=== PATIENT | male | born 1950 | race Caucasian/White ===

== ENCOUNTER → 2016-04-13 | Outpatient (CLI) | payer OTHER ==
--- NOTE | 2016-04-13 14:54 | REP ---
WHOLE BODY BONE SCAN: HISTORY: Whole body bone pain. History of recently diagnosed prostate cancer. No treatment to date. Comparison pelvic CT, March 05, [address] from the same date show lymphadenopathy and sclerotic skeletal metastatic disease. TECHNIQUE: 22.0 mCi of technetium 99m MDP is injected, and standard whole body bone scan imaging is acquired. SCINTIGRAPHIC FINDINGS: There is widespread multifocal increased uptake essentially throughout the axial skeleton consistent with advanced skeletal metastatic disease. There is uptake within the kidneys and the urinary bladder. Mild arthritic uptake is visible in the knees. Pelvis, lumbar, thoracic, cervical spine, calvarium, and bilateral ribs, as well as shoulder girdle bony components. Manubrial and sternal metastases are also seen. 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 Signed by Jamshid Mathews MD 04/13/2016 03:23 P
== END | disposition home or self-care (01) ==
LOC: M RAD 10:10
DX: C61 Malignant neoplasm of prostate (principal); C79.51 Secondary malignant neoplasm of bone

== ENCOUNTER 2016-06-29 21:20 | Emergency (ER) | payer OTHER ==
[~2016-06-29] VITALS: Ht 172.7 cm; Wt 72.6 kg
[2016-06-29] MEDS ORDERED: ATIV1TAB7 (21:56)
[2016-06-29] MEDS ORDERED: METR500T10 (21:56)
[2016-06-29] MEDS ORDERED: MAG400TA (21:56)
[2016-06-29] MEDS ORDERED: FLOM5CAP (21:56)
[2016-06-29] MEDS ORDERED: PANT40TA2 (21:56)
[2016-06-29] MEDS ORDERED: CEFE2INJ IV (21:56)
[2016-06-29] MEDS ORDERED: Morphine PO (21:56)
[2016-06-29] MEDS ORDERED: ALTEPLASE 2 MG/2 ML VIAL (J2997 PER 1MG) IV PRN (23:45)
[2016-06-30] MEDS ORDERED: METAL LOCK LOOP XX ONE (01:15)
[2016-06-30] MEDS ORDERED: CEFEPIME HCL 2 GM in D5W MINI-BAG PLUS 50 ML IV ONE (03:30)
[2016-06-30 04:48] VITALS: BP 140/78
== END 2016-06-30 04:50 | disposition home or self-care (01) ==
LOC: M ED 23:26
DX: T82.598A Other mechanical complication of other cardiac and vascular devices and implants, initial encounter (principal); C61 Malignant neoplasm of prostate; Z88.0 Allergy status to penicillin; Z79.899 Other long term (current) drug therapy; Z79.2 Long term (current) use of antibiotics
CPT/HCPCS: 96374; 96375; 99283; J0692; J2997

== ENCOUNTER 2017-07-22 10:24 | Outpatient (RCR) | payer OTHER ==
[2017-07-22 16:21] LABS: HEMATOCRIT 34.2 % (42.0-52.0); HEMOGLOBIN 11.5 g/dl (13.5-17.5); MEAN CORPUSCULAR HEMOGLOBIN 28.5 pg (27.0-33.0); MEAN CORPUSCULAR HGB CONC 33.6 g/dl (32.0-36.5); MEAN CORPUSCULAR VOLUME 84.7 fl (80.0-96.0); PLATELET COUNT, AUTOMATED 243 10^3/uL (150-450); RED BLOOD COUNT 4.04 10^6/uL (4.30-6.10); RED CELL DISTRIBUTION WIDTH 12.6 % (11.5-14.5); WHITE BLOOD COUNT 7.1 10^3/uL (4.0-10.0)
== END 2017-08-05 ==
LOC: M ONCR 10:24
DX: C79.51 Secondary malignant neoplasm of bone (principal); C61 Malignant neoplasm of prostate
CPT/HCPCS: 77307

== ENCOUNTER → 2017-07-22 | Outpatient (CLI) | payer OTHER | LOC: M ONCR 08:57 | DX: C61 Malignant neoplasm of prostate (principal) | CPT/HCPCS: 99201 ==

== ENCOUNTER 2017-08-06 09:44 | Outpatient (RCR) | payer OTHER | END 2017-09-04 | LOC: M ONCR 09:44 | DX: C79.51 Secondary malignant neoplasm of bone (principal); C61 Malignant neoplasm of prostate | CPT/HCPCS: 77412 ==

== ENCOUNTER → 2017-08-13 | Outpatient (CLI) | payer OTHER | LOC: M PAIN 14:15 | DX: C79.51 Secondary malignant neoplasm of bone (principal); C61 Malignant neoplasm of prostate; I10 Essential (primary) hypertension; K21.9 Gastro-esophageal reflux disease without esophagitis; Z79.899 Other long term (current) drug therapy; Z88.0 Allergy status to penicillin | CPT/HCPCS: G0463 ==

== ENCOUNTER → 2017-09-14 | Outpatient (CLI) | payer OTHER | LOC: M ONCR 13:28 | DX: C61 Malignant neoplasm of prostate (principal); C79.51 Secondary malignant neoplasm of bone | CPT/HCPCS: 99211 ==

== ENCOUNTER → 2017-11-22 | Outpatient (CLI) | payer MEDICARE | LOC: M ONCR 15:07 | DX: C61 Malignant neoplasm of prostate (principal); C79.51 Secondary malignant neoplasm of bone | CPT/HCPCS: G0463 ==

== ENCOUNTER 2017-11-25 09:20 | Outpatient (RCR) | payer MEDICARE | END 2017-12-05 | LOC: M ONCR 09:20 | DX: C79.51 Secondary malignant neoplasm of bone (principal); C61 Malignant neoplasm of prostate | CPT/HCPCS: 77307 ==

== ENCOUNTER 2017-12-02 09:05 | Inpatient (IN) | payer MEDICARE ==
[2017-12-02] MEDS: BISACODYL 10 MG SUPP PR ×2 (09:00→19:29)
[2017-12-02] MEDS: NS 1,000 ML IV (09:48)
[2017-12-02] MEDS: ONDANSETRON 4MG/2ML VIAL (J2405) IV (10:28)
[2017-12-02 10:30] LABS: BASO % 0.5 % (0.0-1.0); HEMATOCRIT 38.9 % (42.0-52.0); IMMATURE GRANULOCYTE % 0.5 % (0-3.0); LYMPH # 0.8 10^3/uL (1.5-4.5); LYMPH % 9.5 % (24.0-44.0); MEAN CORPUSCULAR HEMOGLOBIN 28.5 pg (27.0-33.0); MEAN CORPUSCULAR HGB CONC 33.4 g/dl (32.0-36.5); MEAN CORPUSCULAR VOLUME 85.3 fl (80.0-96.0); MONO # 0.4 10^3/uL (0.0-0.8); MONO % 5.1 % (0.0-5.0); NEUTROPHILS # 6.7 10^3/uL (1.8-7.7); NEUTROPHILS % 84.4 % (36.0-66.0); PLATELET COUNT, AUTOMATED 267 10^3/uL (150-450); RED BLOOD COUNT 4.56 10^6/uL (4.30-6.10); RED CELL DISTRIBUTION WIDTH 14.2 % (11.5-14.5)
[2017-12-02 11:02] LABS: ALBUMIN 3.1 GM/DL (3.2-5.2); ALBUMIN/GLOBULIN RATIO 0.79 (1.00-1.93); ALKALINE PHOSPHATASE 383 U/L (45-117); ALT/SGPT 17 U/L (12-78); ANION GAP 9 MEQ/L (8-16); AST/SGOT 16 U/L (7-37); BILIRUBIN,DIRECT 0.3 MG/DL (0.0-0.2); BILIRUBIN,TOTAL 0.7 MG/DL (0.2-1.0); BLOOD UREA NITROGEN 36 MG/DL (7-18); CALCIUM LEVEL 9.7 MG/DL (8.8-10.2); CARBON DIOXIDE LEVEL 34 MEQ/L (21-32); CHLORIDE LEVEL 94 MEQ/L (98-107); CREATININE FOR GFR 2.21 MG/DL (0.70-1.30); GLUCOSE, FASTING 124 MG/DL (70-100); LIPASE 29 U/L (73-393); POTASSIUM SERUM 3.5 MEQ/L (3.5-5.1); SODIUM LEVEL 137 MEQ/L (136-145)
[2017-12-02] MEDS: PERCOCET 5MG/325MG TAB PO (13:16)
[2017-12-02] MEDS ORDERED: FLEET OIL RETENTION ENEMA PR (14:45)
[2017-12-02] MEDS ORDERED: LORazepam 1 MG TAB PO (14:45)
[2017-12-02] MEDS: METHYLNALTREXONE BROMIDE 12 MG/0.6 ML VIAL (RELISTOR) SC (15:00)
[2017-12-02] MEDS: MIRALAX *UNIT DOSE* 17GM PACKET PO (16:31)
[2017-12-02] MEDS: POTASSIUM CHLORIDE 10 MEQ SR TABLET PO (16:31)
[2017-12-02] MEDS: TAMSULOSIN 0.4 MG CAP PO (16:31)
[2017-12-02] MEDS: LR 1,000 ML IV ×2 (16:32→21:25)
[2017-12-02] MEDS: BISACODYL ENEMA 10 MG/30 ML PR (16:32)
[2017-12-02] MEDS: SENOKOT S TAB PO (19:29)
[2017-12-02] MEDS: predniSONE 5 MG TAB PO (19:47)
[2017-12-02] MEDS: MORPHINE 15 MG SA TAB PO (19:48)
[2017-12-02] MEDS: HEPARIN SOD (PORCINE) 5000 UNITS/ML VIAL SC (19:48)
[2017-12-02] MEDS: CYCLOBENZAPRINE 10 MG TAB PO (19:48)
[2017-12-02] MEDS: oxyCODONE 5MG TAB PO (22:35)
[2017-12-03] MEDS: oxyCODONE 5MG TAB PO ×5 (03:09→23:31)
[2017-12-03 03:35] LABS: OSMOLALITY URINE 453 MOSM/KG (500-800)
[2017-12-03 03:38] LABS: APPEARANCE, URINE HAZY (CLEAR); BACTERIA, URINE AUTO NEGATIVE (NEGATIVE); BILIRUBIN, URINE AUTO NEGATIVE (NEGATIVE); BLOOD, URINE BLOOD NEGATIVE (NEGATIVE); COLOR, URINE YELLOW (YELLOW); GLUCOSE, URINE (UA) AUTO NEGATIVE (NEGATIVE); KETONE, URINE AUTO TRACE mg/dL (NEGATIVE); LEUKOCYTE ESTERASE, URINE AUTO NEGATIVE (NEGATIVE); MUCUS, URINE SMALL (NEGATIVE); NITRITE, URINE AUTO NEGATIVE (NEGATIVE); PROTEIN, URINE AUTO NEGATIVE (NEGATIVE); RBC, URINE AUTO 2 /HPF (0-3); SPECIFIC GRAVITY URINE AUTO 1.015 (1.002-1.035); SQUAMOUS EPITHELIAL CELL UR AU 0 /HPF (0-6); WBC, URINE AUTO 2 /HPF (0-3)
[2017-12-03 03:50] LABS: CHLORIDE,RANDOM URINE < 10 MEQ/L; POTASSIUM RANDOM URINE 25.9 MEQ/L; SODIUM,RANDOM URINE 17 MEQ/L; TOTAL PROTEIN,RANDOM URINE 29.2 MG/DL (0.0-12.0)
[2017-12-03] MEDS: LR 1,000 ML IV ×3 (04:05→19:43)
[2017-12-03 06:38] LABS: HEMATOCRIT 33.3 % (42.0-52.0); MEAN CORPUSCULAR HEMOGLOBIN 28.4 pg (27.0-33.0); MEAN CORPUSCULAR HGB CONC 32.4 g/dl (32.0-36.5); MEAN CORPUSCULAR VOLUME 87.6 fl (80.0-96.0); PLATELET COUNT, AUTOMATED 217 10^3/uL (150-450); RED CELL DISTRIBUTION WIDTH 14.2 % (11.5-14.5); WHITE BLOOD COUNT 5.8 10^3/uL (4.0-10.0)
[2017-12-03 06:47] LABS: HEMOGLOBIN 10.8 g/dl (13.5-17.5)
[2017-12-03 07:08] LABS: ALBUMIN 2.6 GM/DL (3.2-5.2); ALBUMIN/GLOBULIN RATIO 0.96 (1.00-1.93); ALKALINE PHOSPHATASE 328 U/L (45-117); ALT/SGPT 14 U/L (12-78); ANION GAP 6 MEQ/L (8-16); AST/SGOT 14 U/L (7-37); BILIRUBIN,TOTAL 0.7 MG/DL (0.2-1.0); BLOOD UREA NITROGEN 29 MG/DL (7-18); CALCIUM LEVEL 8.8 MG/DL (8.8-10.2); CARBON DIOXIDE LEVEL 32 MEQ/L (21-32); CHLORIDE LEVEL 100 MEQ/L (98-107); CREATININE FOR GFR 1.82 MG/DL (0.70-1.30); GLUCOSE, FASTING 111 MG/DL (70-100); MAGNESIUM LEVEL 1.9 MG/DL (1.8-2.4); POTASSIUM SERUM 3.9 MEQ/L (3.5-5.1); SODIUM LEVEL 138 MEQ/L (136-145); TOTAL PROTEIN 5.3 GM/DL (6.4-8.2)
[2017-12-03] MEDS ORDERED: SODIUM CHLORIDE 0.9% INJ 10 ML SYR IV (08:00)
[2017-12-03] MEDS: MORPHINE 15 MG SA TAB PO ×2 (08:53→19:44)
[2017-12-03] MEDS: predniSONE 5 MG TAB PO ×2 (08:54→19:44)
[2017-12-03] MEDS: PANTOPRAZOLE 40MG TAB (PROTONIX) PO (08:54)
[2017-12-03] MEDS: SENOKOT S TAB PO ×2 (08:54→19:43)
[2017-12-03] MEDS: CYCLOBENZAPRINE 10 MG TAB PO ×2 (08:56→19:43)
[2017-12-03] MEDS: TAMSULOSIN 0.4 MG CAP PO (08:56)
[2017-12-03] MEDS: MIRALAX *UNIT DOSE* 17GM PACKET PO (08:59)
[2017-12-03] MEDS: HEPARIN SOD (PORCINE) 5000 UNITS/ML VIAL SC ×2 (08:59→19:44)
[2017-12-03] MEDS: SODIUM CHLORIDE 0.9% INJ 10 ML SYR IV (09:00)
[2017-12-03] MEDS ORDERED: ZYTIGA 250 MG PO (09:00)
[2017-12-03] MEDS: BISACODYL 10 MG SUPP PR ×2 (09:00→19:44)
[2017-12-03] MEDS: INFLUENZA VIRUS VACCINE HIGH DOSE 0.5 ML SYRINGE (90662) IM (10:42)
[2017-12-03] MEDS: ONDANSETRON 4MG/2ML VIAL (J2405) IV (19:43)
[2017-12-04] MEDS: LR 1,000 ML IV ×4 (00:05→20:44)
[2017-12-04] MEDS: ACETAMINOPHEN TAB 650MG DOSE (2X325MG) PO ×2 (01:44→22:02)
[2017-12-04] MEDS: ZYTIGA 250 MG PO (05:50)
[2017-12-04] MEDS: ONDANSETRON 4MG/2ML VIAL (J2405) IV ×2 (05:50→22:19)
[2017-12-04] MEDS: oxyCODONE 5MG TAB PO ×4 (05:51→20:43)
[2017-12-04 06:17] LABS: HEMATOCRIT 29.8 % (42.0-52.0); HEMOGLOBIN 9.7 g/dl (13.5-17.5); MEAN CORPUSCULAR HEMOGLOBIN 28.8 pg (27.0-33.0); MEAN CORPUSCULAR HGB CONC 32.6 g/dl (32.0-36.5); MEAN CORPUSCULAR VOLUME 88.4 fl (80.0-96.0); PLATELET COUNT, AUTOMATED 178 10^3/uL (150-450); RED BLOOD COUNT 3.37 10^6/uL (4.30-6.10); RED CELL DISTRIBUTION WIDTH 14.1 % (11.5-14.5); WHITE BLOOD COUNT 5.8 10^3/uL (4.0-10.0)
[2017-12-04 06:47] LABS: ALBUMIN 2.4 GM/DL (3.2-5.2); ALKALINE PHOSPHATASE 303 U/L (45-117); ALT/SGPT 14 U/L (12-78); ANION GAP 8 MEQ/L (8-16); AST/SGOT 11 U/L (7-37); BILIRUBIN,TOTAL 0.5 MG/DL (0.2-1.0); BLOOD UREA NITROGEN 18 MG/DL (7-18); CALCIUM LEVEL 9.4 MG/DL (8.8-10.2); CARBON DIOXIDE LEVEL 31 MEQ/L (21-32); CHLORIDE LEVEL 103 MEQ/L (98-107); GLOMERULAR FILTRATION RATE 54.1 (>49); GLUCOSE, FASTING 122 MG/DL (70-100); MAGNESIUM LEVEL 1.8 MG/DL (1.8-2.4); POTASSIUM SERUM 3.9 MEQ/L (3.5-5.1); SODIUM LEVEL 142 MEQ/L (136-145); TOTAL PROTEIN 4.8 GM/DL (6.4-8.2)
[2017-12-04] MEDS: SENOKOT S TAB PO ×2 (08:21→20:43)
[2017-12-04] MEDS: PANTOPRAZOLE 40MG TAB (PROTONIX) PO (08:21)
[2017-12-04] MEDS: MORPHINE 15 MG SA TAB PO ×2 (08:21→20:44)
[2017-12-04] MEDS: predniSONE 5 MG TAB PO ×2 (08:21→20:43)
[2017-12-04] MEDS: CYCLOBENZAPRINE 10 MG TAB PO ×2 (08:21→20:43)
[2017-12-04] MEDS: TAMSULOSIN 0.4 MG CAP PO (08:21)
[2017-12-04] MEDS: MIRALAX *UNIT DOSE* 17GM PACKET PO (08:22)
[2017-12-04] MEDS: BISACODYL 10 MG SUPP PR ×2 (08:22→20:44)
[2017-12-04] MEDS: HEPARIN SOD (PORCINE) 5000 UNITS/ML VIAL SC ×2 (08:22→20:44)
[2017-12-04] MEDS: SODIUM CHLORIDE 0.9% INJ 10 ML SYR IV (08:22)
[2017-12-05] MEDS: LR 1,000 ML IV ×2 (03:52→09:25)
[2017-12-05] MEDS: oxyCODONE 5MG TAB PO ×3 (03:55→20:39)
[2017-12-05] MEDS: ZYTIGA 250 MG PO (05:14)
[2017-12-05 05:35] LABS: HEMATOCRIT 30.4 % (42.0-52.0); HEMOGLOBIN 9.8 g/dl (13.5-17.5); MEAN CORPUSCULAR HEMOGLOBIN 28.4 pg (27.0-33.0); MEAN CORPUSCULAR HGB CONC 32.2 g/dl (32.0-36.5); MEAN CORPUSCULAR VOLUME 88.1 fl (80.0-96.0); PLATELET COUNT, AUTOMATED 183 10^3/uL (150-450); RED BLOOD COUNT 3.45 10^6/uL (4.30-6.10); RED CELL DISTRIBUTION WIDTH 13.9 % (11.5-14.5); WHITE BLOOD COUNT 4.9 10^3/uL (4.0-10.0)
[2017-12-05 05:51] LABS: ESTIMATED AVERAGE GLUCOSE 134 MG/DL (60-110); HEMOGLOBIN A1c 6.3 %
[2017-12-05 06:04] LABS: ALBUMIN 2.5 GM/DL (3.2-5.2); ALKALINE PHOSPHATASE 307 U/L (45-117); ALT/SGPT 11 U/L (12-78); ANION GAP 9 MEQ/L (8-16); AST/SGOT 13 U/L (7-37); BILIRUBIN,TOTAL 0.6 MG/DL (0.2-1.0); BLOOD UREA NITROGEN 13 MG/DL (7-18); CALCIUM LEVEL 9.2 MG/DL (8.8-10.2); CARBON DIOXIDE LEVEL 30 MEQ/L (21-32); CHLORIDE LEVEL 104 MEQ/L (98-107); CREATININE FOR GFR 1.29 MG/DL (0.70-1.30); GLOMERULAR FILTRATION RATE 59.5 (>49); GLUCOSE, FASTING 119 MG/DL (70-100); MAGNESIUM LEVEL 1.8 MG/DL (1.8-2.4); POTASSIUM SERUM 3.9 MEQ/L (3.5-5.1); SODIUM LEVEL 143 MEQ/L (136-145)
[2017-12-05] MEDS: BISACODYL 10 MG SUPP PR ×2 (09:00→20:41)
[2017-12-05] MEDS: HEPARIN SOD (PORCINE) 5000 UNITS/ML VIAL SC ×2 (09:00→20:40)
[2017-12-05] MEDS: SODIUM CHLORIDE 0.9% INJ 10 ML SYR IV (09:00)
[2017-12-05] MEDS: MIRALAX *UNIT DOSE* 17GM PACKET PO (09:18)
[2017-12-05] MEDS: SENOKOT S TAB PO ×2 (09:19→20:40)
[2017-12-05] MEDS: TAMSULOSIN 0.4 MG CAP PO (09:19)
[2017-12-05] MEDS: CYCLOBENZAPRINE 10 MG TAB PO ×2 (09:19→20:40)
[2017-12-05] MEDS: predniSONE 5 MG TAB PO ×2 (09:19→20:40)
[2017-12-05] MEDS: PANTOPRAZOLE 40MG TAB (PROTONIX) PO (09:19)
[2017-12-05] MEDS: MORPHINE 15 MG SA TAB PO ×2 (09:19→20:40)
[2017-12-05] MEDS: ACETAMINOPHEN TAB 650MG DOSE (2X325MG) PO ×2 (12:21→22:23)
[2017-12-05] MEDS: ONDANSETRON 4MG/2ML VIAL (J2405) IV (12:21)
[2017-12-06] MEDS: oxyCODONE 5MG TAB PO ×3 (02:39→16:04)
[2017-12-06] MEDS: ACETAMINOPHEN TAB 650MG DOSE (2X325MG) PO (04:34)
[2017-12-06] MEDS: ZYTIGA 250 MG PO (06:00)
[2017-12-06 06:07] LABS: HEMATOCRIT 29.5 % (42.0-52.0); HEMOGLOBIN 9.6 g/dl (13.5-17.5); MEAN CORPUSCULAR HEMOGLOBIN 28.7 pg (27.0-33.0); MEAN CORPUSCULAR HGB CONC 32.5 g/dl (32.0-36.5); MEAN CORPUSCULAR VOLUME 88.1 fl (80.0-96.0); PLATELET COUNT, AUTOMATED 177 10^3/uL (150-450); RED BLOOD COUNT 3.35 10^6/uL (4.30-6.10); RED CELL DISTRIBUTION WIDTH 13.9 % (11.5-14.5); WHITE BLOOD COUNT 4.5 10^3/uL (4.0-10.0)
[2017-12-06 06:24] LABS: ALBUMIN 2.4 GM/DL (3.2-5.2); ALKALINE PHOSPHATASE 301 U/L (45-117); ALT/SGPT 12 U/L (12-78); ANION GAP 6 MEQ/L (8-16); AST/SGOT 12 U/L (7-37); BILIRUBIN,TOTAL 0.4 MG/DL (0.2-1.0); BLOOD UREA NITROGEN 12 MG/DL (7-18); CARBON DIOXIDE LEVEL 32 MEQ/L (21-32); CHLORIDE LEVEL 105 MEQ/L (98-107); GLUCOSE, FASTING 123 MG/DL (70-100); MAGNESIUM LEVEL 1.7 MG/DL (1.8-2.4); POTASSIUM SERUM 3.9 MEQ/L (3.5-5.1); SODIUM LEVEL 143 MEQ/L (136-145); TOTAL PROTEIN 4.8 GM/DL (6.4-8.2)
[2017-12-06] MEDS: HEPARIN SOD (PORCINE) 5000 UNITS/ML VIAL SC ×2 (09:00→09:39)
[2017-12-06] MEDS: BISACODYL 10 MG SUPP PR (09:39)
[2017-12-06] MEDS: MIRALAX *UNIT DOSE* 17GM PACKET PO (09:39)
[2017-12-06] MEDS: SENOKOT S TAB PO (09:39)
[2017-12-06] MEDS: CYCLOBENZAPRINE 10 MG TAB PO (09:40)
[2017-12-06] MEDS: MAGNESIUM OXIDE 400 MG TAB (MAG-OX) PO (09:40)
[2017-12-06] MEDS: PANTOPRAZOLE 40MG TAB (PROTONIX) PO (09:40)
[2017-12-06] MEDS: predniSONE 5 MG TAB PO (09:40)
[2017-12-06] MEDS: TAMSULOSIN 0.4 MG CAP PO (09:40)
[2017-12-06] MEDS: MORPHINE 15 MG SA TAB PO (09:40)
[2017-12-06] MEDS: SODIUM CHLORIDE 0.9% INJ 10 ML SYR IV (09:41)
[2017-12-06] MEDS: ONDANSETRON 4 MG TAB (S0181) PO (16:46)
== END 2017-12-06 18:20 | disposition home or self-care (01) | DRG 683 ==
LOC: M ED 09:05 → M ED INP 14:41 → M MS5PR 15:25
DX: N17.9 Acute kidney failure, unspecified (principal); C79.51 Secondary malignant neoplasm of bone; R11.2 Nausea with vomiting, unspecified; C61 Malignant neoplasm of prostate; G89.3 Neoplasm related pain (acute) (chronic); K59.03 Drug induced constipation; T40.2X5A Adverse effect of other opioids, initial encounter; N40.0 Benign prostatic hyperplasia without lower urinary tract symptoms; E16.2 Hypoglycemia, unspecified; K21.9 Gastro-esophageal reflux disease without esophagitis; Z88.0 Allergy status to penicillin; Z90.49 Acquired absence of other specified parts of digestive tract; Z79.891 Long term (current) use of opiate analgesic; Z79.899 Other long term (current) drug therapy

== ENCOUNTER 2017-12-07 14:20 | Outpatient (RCR) | payer MEDICARE | END 2018-01-05 | LOC: M ONCR 14:20 | DX: C79.51 Secondary malignant neoplasm of bone (principal); C61 Malignant neoplasm of prostate | CPT/HCPCS: 77336 ==

== ENCOUNTER 2017-12-14 10:40 | Inpatient (IN) | payer MEDICARE ==
[2017-12-14] MEDS: NS 1,000 ML IV ×3 (12:00→23:58)
[2017-12-14 12:25] LABS: BASO % 0.5 % (0.0-1.0); HEMATOCRIT 40.4 % (42.0-52.0); IMMATURE GRANULOCYTE % 0.9 % (0-3.0); LYMPH # 0.7 10^3/uL (1.5-4.5); LYMPH % 12.8 % (24.0-44.0); MEAN CORPUSCULAR HEMOGLOBIN 28.7 pg (27.0-33.0); MEAN CORPUSCULAR HGB CONC 32.2 g/dl (32.0-36.5); MEAN CORPUSCULAR VOLUME 89.2 fl (80.0-96.0); MONO # 0.4 10^3/uL (0.0-0.8); MONO % 6.6 % (0.0-5.0); NEUTROPHILS # 4.5 10^3/uL (1.8-7.7); NEUTROPHILS % 79.2 % (36.0-66.0); PLATELET COUNT, AUTOMATED 242 10^3/uL (150-450); RED BLOOD COUNT 4.53 10^6/uL (4.30-6.10); RED CELL DISTRIBUTION WIDTH 14.5 % (11.5-14.5); WHITE BLOOD COUNT 5.6 10^3/uL (4.0-10.0)
[2017-12-14 12:40] LABS: INR 0.96; PROTHROMBIN TIME 12.9 SECONDS (12.1-14.4)
[2017-12-14 12:41] LABS: PARTIAL THROMBOPLASTIN TIME 25.4 SECONDS (25.4-37.6)
[2017-12-14 13:14] LABS: ALBUMIN 3.2 GM/DL (3.2-5.2); ALBUMIN/GLOBULIN RATIO 0.89 (1.00-1.93); ALKALINE PHOSPHATASE 453 U/L (45-117); ALT/SGPT 18 U/L (12-78); ANION GAP 5 MEQ/L (8-16); AST/SGOT 13 U/L (7-37); BILIRUBIN,DIRECT 0.2 MG/DL (0.0-0.2); BILIRUBIN,TOTAL 0.5 MG/DL (0.2-1.0); BLOOD UREA NITROGEN 21 MG/DL (7-18); CALCIUM LEVEL 9.1 MG/DL (8.8-10.2); CARBON DIOXIDE LEVEL 35 MEQ/L (21-32); CHLORIDE LEVEL 96 MEQ/L (98-107); CK-MB VALUE MASS < 1.0 NG/ML (<3.6); CPK CREATINE PHOSPHOKINASE 57 U/L (39-308); CREATININE FOR GFR 1.69 MG/DL (0.70-1.30); GLOMERULAR FILTRATION RATE 43.6 (>49); GLUCOSE, FASTING 136 MG/DL (70-100); LIPASE 39 U/L (73-393); MB/CK RELATIVE INDEX 1.75 (< OR =4); SODIUM LEVEL 136 MEQ/L (136-145); TOTAL PROTEIN 6.8 GM/DL (6.4-8.2); TROPONIN I < 0.02 NG/ML (< 0.10)
[2017-12-14] MEDS ORDERED: ISOVUE-370 76% 100ML VIAL (Q9967) As Ordered (13:32)
[2017-12-14] MEDS: MORPHINE 4 MG/ML 1ML VIAL/SYRINGE (J2270) IV (13:37)
[2017-12-14] MEDS ORDERED: FLEET OIL RETENTION ENEMA PR (15:30)
[2017-12-14] MEDS ORDERED: SENNA 8.6 MG TAB (SENOKOT) PO (15:30)
[2017-12-14] MEDS ORDERED: DOCUSATE SODIUM 100 MG CAP PO (15:30)
[2017-12-14] MEDS: SUCRALFATE SUSP 1GM/10ML UD PO ×2 (16:48→22:54)
[2017-12-14] MEDS: oxyCODONE 5MG TAB PO ×2 (16:48→20:41)
[2017-12-14 18:31] LABS: CK-MB VALUE MASS < 1.0 NG/ML (<3.6); CPK CREATINE PHOSPHOKINASE 49 U/L (39-308); MB/CK RELATIVE INDEX 2.04 (< OR =4); TROPONIN I < 0.02 NG/ML (< 0.10)
[2017-12-14] MEDS ORDERED: ACETAMINOPHEN 325 MG TAB As Ordered (19:49)
[2017-12-14] MEDS: ACETAMINOPHEN TAB 650MG DOSE (2X325MG) PO (19:55)
[2017-12-14] MEDS: predniSONE 5 MG TAB PO (22:07)
[2017-12-14] MEDS: DOCUSATE SODIUM 100 MG CAP PO (22:07)
[2017-12-14] MEDS: PIPERACILLIN/TAZOBACTAM SOD 3.375 GM in D5W MINI-BAG PLUS 50 ML IV (22:07)
[2017-12-14] MEDS: MORPHINE 15 MG SA TAB PO (22:19)
[2017-12-14] MEDS: MIRALAX *UNIT DOSE* 17GM PACKET PO (22:54)
[2017-12-14] MEDS: SENNA 8.6 MG TAB (SENOKOT) PO (23:56)
[2017-12-15] MEDS: ONDANSETRON 4MG/2ML VIAL (J2405) IV ×3 (00:19→22:37)
[2017-12-15] MEDS: oxyCODONE 5MG TAB PO ×5 (01:43→22:37)
[2017-12-15 02:23] LABS: CK-MB VALUE MASS < 1.0 NG/ML (<3.6); CPK CREATINE PHOSPHOKINASE 41 U/L (39-308); MB/CK RELATIVE INDEX 2.44 (< OR =4); TROPONIN I < 0.02 NG/ML (< 0.10)
[2017-12-15] MEDS: PIPERACILLIN/TAZOBACTAM SOD 3.375 GM in D5W MINI-BAG PLUS 50 ML IV ×4 (03:17→20:32)
[2017-12-15] MEDS: ACETAMINOPHEN TAB 650MG DOSE (2X325MG) PO ×2 (05:37→16:57)
[2017-12-15 08:12] LABS: BASO % 0.7 % (0.0-1.0); HEMOGLOBIN 11.2 g/dl (13.5-17.5); IMMATURE GRANULOCYTE % 0.5 % (0-3.0); LYMPH # 0.6 10^3/uL (1.5-4.5); MEAN CORPUSCULAR HEMOGLOBIN 28.7 pg (27.0-33.0); MEAN CORPUSCULAR HGB CONC 32.9 g/dl (32.0-36.5); MEAN CORPUSCULAR VOLUME 87.2 fl (80.0-96.0); MONO # 0.3 10^3/uL (0.0-0.8); NEUTROPHILS # 3.3 10^3/uL (1.8-7.7); NEUTROPHILS % 77.8 % (36.0-66.0); PLATELET COUNT, AUTOMATED 223 10^3/uL (150-450); RED CELL DISTRIBUTION WIDTH 14.6 % (11.5-14.5); WHITE BLOOD COUNT 4.3 10^3/uL (4.0-10.0)
[2017-12-15 08:50] LABS: ALBUMIN 2.6 GM/DL (3.2-5.2); ALBUMIN/GLOBULIN RATIO 0.79 (1.00-1.93); ALKALINE PHOSPHATASE 379 U/L (45-117); ALT/SGPT 13 U/L (12-78); ANION GAP 5 MEQ/L (8-16); AST/SGOT 13 U/L (7-37); BILIRUBIN,TOTAL 0.5 MG/DL (0.2-1.0); BLOOD UREA NITROGEN 20 MG/DL (7-18); CALCIUM LEVEL 9.3 MG/DL (8.8-10.2); CARBON DIOXIDE LEVEL 31 MEQ/L (21-32); CHLORIDE LEVEL 102 MEQ/L (98-107); CREATININE FOR GFR 1.39 MG/DL (0.70-1.30); GLOMERULAR FILTRATION RATE 54.6 (>49); GLUCOSE, FASTING 116 MG/DL (70-100); MAGNESIUM LEVEL 2.2 MG/DL (1.8-2.4); POTASSIUM SERUM 3.8 MEQ/L (3.5-5.1); SODIUM LEVEL 138 MEQ/L (136-145); TOTAL PROTEIN 5.9 GM/DL (6.4-8.2)
[2017-12-15] MEDS: TAMSULOSIN 0.4 MG CAP PO (09:14)
[2017-12-15] MEDS: PANTOPRAZOLE 40MG INJ (PROTONIX) (C9113) IV (09:15)
[2017-12-15] MEDS: SUCRALFATE SUSP 1GM/10ML UD PO ×4 (09:15→20:31)
[2017-12-15] MEDS: ENOXAPARIN 30 MG/0.3 ML SYR (J1650) SC (09:15)
[2017-12-15] MEDS: DOCUSATE SODIUM 100 MG CAP PO ×2 (09:15→20:32)
[2017-12-15] MEDS: MORPHINE 15 MG SA TAB PO ×2 (09:16→20:32)
[2017-12-15] MEDS: MIRALAX *UNIT DOSE* 17GM PACKET PO ×2 (09:16→20:33)
[2017-12-15] MEDS: predniSONE 5 MG TAB PO ×2 (09:16→20:33)
[2017-12-15] MEDS: SENNA 8.6 MG TAB (SENOKOT) PO ×2 (09:32→20:32)
[2017-12-15 10:30] LABS: CK-MB VALUE MASS < 1.0 NG/ML (<3.6); CPK CREATINE PHOSPHOKINASE 35 U/L (39-308); MB/CK RELATIVE INDEX 2.86 (< OR =4); TROPONIN I < 0.02 NG/ML (< 0.10)
[2017-12-15] MEDS: NS 1,000 ML IV ×2 (11:14→20:33)
[2017-12-16] MEDS: PIPERACILLIN/TAZOBACTAM SOD 3.375 GM in D5W MINI-BAG PLUS 50 ML IV ×2 (02:54→08:56)
[2017-12-16] MEDS: oxyCODONE 5MG TAB PO ×4 (05:29→22:32)
[2017-12-16] MEDS ORDERED: ZYTIGA 250 MG PO (06:00)
[2017-12-16 07:28] LABS: BASO % 0.5 % (0.0-1.0); HEMATOCRIT 33.8 % (42.0-52.0); HEMOGLOBIN 10.9 g/dl (13.5-17.5); IMMATURE GRANULOCYTE % 0.8 % (0-3.0); LYMPH # 0.6 10^3/uL (1.5-4.5); LYMPH % 14.4 % (24.0-44.0); MEAN CORPUSCULAR HEMOGLOBIN 28.5 pg (27.0-33.0); MEAN CORPUSCULAR HGB CONC 32.2 g/dl (32.0-36.5); MEAN CORPUSCULAR VOLUME 88.3 fl (80.0-96.0); MONO # 0.3 10^3/uL (0.0-0.8); MONO % 7.2 % (0.0-5.0); NEUTROPHILS % 77.1 % (36.0-66.0); PLATELET COUNT, AUTOMATED 207 10^3/uL (150-450); RED BLOOD COUNT 3.83 10^6/uL (4.30-6.10); RED CELL DISTRIBUTION WIDTH 14.3 % (11.5-14.5); WHITE BLOOD COUNT 3.9 10^3/uL (4.0-10.0)
[2017-12-16] MEDS ORDERED: FLEET OIL RETENTION ENEMA PR (07:45)
[2017-12-16 07:48] LABS: ALBUMIN 2.5 GM/DL (3.2-5.2); ALBUMIN/GLOBULIN RATIO 0.74 (1.00-1.93); ALKALINE PHOSPHATASE 358 U/L (45-117); ALT/SGPT 15 U/L (12-78); ANION GAP 7 MEQ/L (8-16); AST/SGOT 15 U/L (7-37); BILIRUBIN,TOTAL 0.4 MG/DL (0.2-1.0); BLOOD UREA NITROGEN 14 MG/DL (7-18); CALCIUM LEVEL 9.1 MG/DL (8.8-10.2); CARBON DIOXIDE LEVEL 30 MEQ/L (21-32); CHLORIDE LEVEL 104 MEQ/L (98-107); CREATININE FOR GFR 1.29 MG/DL (0.70-1.30); GLOMERULAR FILTRATION RATE 59.5 (>49); GLUCOSE, FASTING 113 MG/DL (70-100); POTASSIUM SERUM 3.6 MEQ/L (3.5-5.1); SODIUM LEVEL 141 MEQ/L (136-145); TOTAL PROTEIN 5.9 GM/DL (6.4-8.2)
[2017-12-16] MEDS: ONDANSETRON 4MG/2ML VIAL (J2405) IV ×3 (08:12→21:20)
[2017-12-16] MEDS: NS 1,000 ML IV (08:13)
[2017-12-16] MEDS: SUCRALFATE SUSP 1GM/10ML UD PO ×4 (08:54→21:20)
[2017-12-16] MEDS: SENNA 8.6 MG TAB (SENOKOT) PO ×2 (08:55→21:09)
[2017-12-16] MEDS: DOCUSATE SODIUM 100 MG CAP PO ×2 (08:55→21:11)
[2017-12-16] MEDS: predniSONE 5 MG TAB PO ×2 (08:55→21:09)
[2017-12-16] MEDS: TAMSULOSIN 0.4 MG CAP PO (08:55)
[2017-12-16] MEDS: MORPHINE 15 MG SA TAB PO ×2 (08:55→21:10)
[2017-12-16] MEDS: ENOXAPARIN 30 MG/0.3 ML SYR (J1650) SC (08:56)
[2017-12-16] MEDS: PANTOPRAZOLE 40MG INJ (PROTONIX) (C9113) IV (08:56)
[2017-12-16] MEDS: MIRALAX *UNIT DOSE* 17GM PACKET PO ×2 (08:56→21:11)
[2017-12-16] MEDS: SODIUM CHLORIDE 0.9% INJ 10 ML SYR IV (08:57)
[2017-12-16] MEDS: ACETAMINOPHEN TAB 650MG DOSE (2X325MG) PO (13:08)
[2017-12-16] MEDS ORDERED: diphenhydrAMINE 25 MG CAP PO (14:30)
[2017-12-16] MEDS: D5W/0.45% SODIUM CHLORIDE 1,000 ML IV (14:42)
[2017-12-16] MEDS: LORazepam 1 MG TAB PO (21:09)
[2017-12-17] MEDS: oxyCODONE 5MG TAB PO ×4 (02:38→16:58)
[2017-12-17] MEDS: D5W/0.45% SODIUM CHLORIDE 1,000 ML IV ×2 (05:42→23:33)
[2017-12-17] MEDS: SODIUM CHLORIDE 0.9% INJ 10 ML SYR IV ×2 (05:43→08:19)
[2017-12-17 06:13] LABS: BASO % 0.7 % (0.0-1.0); HEMATOCRIT 37.6 % (42.0-52.0); HEMOGLOBIN 11.9 g/dl (13.5-17.5); IMMATURE GRANULOCYTE % 0.5 % (0-3.0); LYMPH # 1.1 10^3/uL (1.5-4.5); LYMPH % 20.8 % (24.0-44.0); MEAN CORPUSCULAR HEMOGLOBIN 27.9 pg (27.0-33.0); MEAN CORPUSCULAR HGB CONC 31.6 g/dl (32.0-36.5); MEAN CORPUSCULAR VOLUME 88.1 fl (80.0-96.0); MONO # 0.4 10^3/uL (0.0-0.8); MONO % 6.6 % (0.0-5.0); NEUTROPHILS # 3.9 10^3/uL (1.8-7.7); NEUTROPHILS % 71.4 % (36.0-66.0); PLATELET COUNT, AUTOMATED 219 10^3/uL (150-450); RED BLOOD COUNT 4.27 10^6/uL (4.30-6.10); RED CELL DISTRIBUTION WIDTH 14.2 % (11.5-14.5); WHITE BLOOD COUNT 5.5 10^3/uL (4.0-10.0)
[2017-12-17] MEDS: ONDANSETRON 4MG/2ML VIAL (J2405) IV (06:39)
[2017-12-17 06:42] LABS: ALBUMIN/GLOBULIN RATIO 0.97 (1.00-1.93); ALKALINE PHOSPHATASE 409 U/L (45-117); ALT/SGPT 17 U/L (12-78); ANION GAP 9 MEQ/L (8-16); AST/SGOT 15 U/L (7-37); BILIRUBIN,TOTAL 0.4 MG/DL (0.2-1.0); BLOOD UREA NITROGEN 9 MG/DL (7-18); CALCIUM LEVEL 9.7 MG/DL (8.8-10.2); CARBON DIOXIDE LEVEL 29 MEQ/L (21-32); CHLORIDE LEVEL 104 MEQ/L (98-107); GLUCOSE, FASTING 122 MG/DL (70-100); POTASSIUM SERUM 3.6 MEQ/L (3.5-5.1); SODIUM LEVEL 142 MEQ/L (136-145); TOTAL PROTEIN 6.1 GM/DL (6.4-8.2)
[2017-12-17] MEDS: PANTOPRAZOLE 40MG INJ (PROTONIX) (C9113) IV (08:18)
[2017-12-17] MEDS: MIRALAX *UNIT DOSE* 17GM PACKET PO ×2 (08:18→21:00)
[2017-12-17] MEDS: SUCRALFATE SUSP 1GM/10ML UD PO ×4 (08:18→20:59)
[2017-12-17] MEDS: DOCUSATE SODIUM 100 MG CAP PO ×2 (08:20→21:00)
[2017-12-17] MEDS: TAMSULOSIN 0.4 MG CAP PO (08:20)
[2017-12-17] MEDS: MORPHINE 15 MG SA TAB PO ×2 (08:20→21:00)
[2017-12-17] MEDS: SENNA 8.6 MG TAB (SENOKOT) PO ×3 (08:21→21:00)
[2017-12-17] MEDS: predniSONE 5 MG TAB PO ×2 (08:21→21:00)
[2017-12-17] MEDS: ENOXAPARIN 30 MG/0.3 ML SYR (J1650) SC (08:29)
[2017-12-17] MEDS: METOCLOPRAMIDE INJ 10MG/2ML VIAL (J2765) IV ×2 (11:01→19:03)
[2017-12-17] MEDS: METHYLNALTREXONE BROMIDE 12 MG/0.6 ML VIAL (RELISTOR) SC (13:38)
[2017-12-17] MEDS: ZYTIGA PO (13:38)
[2017-12-17] MEDS: LORazepam 1 MG TAB PO (21:00)
[2017-12-18] MEDS: oxyCODONE 5MG TAB PO ×3 (01:59→18:59)
[2017-12-18] MEDS: ZYTIGA PO (05:35)
[2017-12-18 05:41] LABS: BASO % 0.7 % (0.0-1.0); HEMATOCRIT 36.9 % (42.0-52.0); HEMOGLOBIN 11.9 g/dl (13.5-17.5); IMMATURE GRANULOCYTE % 0.7 % (0-3.0); LYMPH % 20.7 % (24.0-44.0); MEAN CORPUSCULAR HEMOGLOBIN 28.1 pg (27.0-33.0); MEAN CORPUSCULAR HGB CONC 32.2 g/dl (32.0-36.5); MEAN CORPUSCULAR VOLUME 87.2 fl (80.0-96.0); MONO # 0.4 10^3/uL (0.0-0.8); MONO % 7.8 % (0.0-5.0); NEUTROPHILS # 3.2 10^3/uL (1.8-7.7); NEUTROPHILS % 70.1 % (36.0-66.0); PLATELET COUNT, AUTOMATED 206 10^3/uL (150-450); RED BLOOD COUNT 4.23 10^6/uL (4.30-6.10); RED CELL DISTRIBUTION WIDTH 14.3 % (11.5-14.5); WHITE BLOOD COUNT 4.6 10^3/uL (4.0-10.0)
[2017-12-18 06:38] LABS: ALBUMIN 2.6 GM/DL (3.2-5.2); ALBUMIN/GLOBULIN RATIO 0.79 (1.00-1.93); ALKALINE PHOSPHATASE 409 U/L (45-117); ALT/SGPT 17 U/L (12-78); ANION GAP 11 MEQ/L (8-16); AST/SGOT 16 U/L (7-37); BILIRUBIN,TOTAL 0.5 MG/DL (0.2-1.0); BLOOD UREA NITROGEN 9 MG/DL (7-18); CALCIUM LEVEL 9.5 MG/DL (8.8-10.2); CARBON DIOXIDE LEVEL 28 MEQ/L (21-32); CHLORIDE LEVEL 103 MEQ/L (98-107); CREATININE FOR GFR 1.16 MG/DL (0.70-1.30); GLOMERULAR FILTRATION RATE > 60.0 (>49); GLUCOSE, FASTING 136 MG/DL (70-100); POTASSIUM SERUM 2.8 MEQ/L (3.5-5.1); SODIUM LEVEL 142 MEQ/L (136-145); TOTAL PROTEIN 5.9 GM/DL (6.4-8.2)
[2017-12-18] MEDS: KCL 10MEQ/100ML SWI (KRUN) 10 MEQ in APPROPRIATE DILUENT 1 EA IV ×3 (07:02→09:51)
[2017-12-18] MEDS: POTASSIUM CHLORIDE 10 MEQ SR TABLET PO ×2 (07:03→17:41)
[2017-12-18 07:58] LABS: MAGNESIUM LEVEL 1.8 MG/DL (1.8-2.4)
[2017-12-18] MEDS: PANTOPRAZOLE 40MG INJ (PROTONIX) (C9113) IV (08:34)
[2017-12-18] MEDS: SUCRALFATE SUSP 1GM/10ML UD PO ×4 (08:34→20:45)
[2017-12-18] MEDS: MIRALAX *UNIT DOSE* 17GM PACKET PO ×2 (08:34→20:46)
[2017-12-18] MEDS: SENNA 8.6 MG TAB (SENOKOT) PO ×2 (08:35→08:47)
[2017-12-18] MEDS: ENOXAPARIN 30 MG/0.3 ML SYR (J1650) SC ×2 (08:35→08:47)
[2017-12-18] MEDS: SODIUM CHLORIDE 0.9% INJ 10 ML SYR IV (08:35)
[2017-12-18] MEDS: TAMSULOSIN 0.4 MG CAP PO (08:36)
[2017-12-18] MEDS: MORPHINE 15 MG SA TAB PO ×2 (08:36→20:46)
[2017-12-18] MEDS: predniSONE 5 MG TAB PO ×2 (08:37→20:46)
[2017-12-18] MEDS: DOCUSATE SODIUM 100 MG CAP PO (08:37)
[2017-12-18 15:19] LABS: ANION GAP 9 MEQ/L (8-16); BLOOD UREA NITROGEN 9 MG/DL (7-18); CALCIUM LEVEL 9.7 MG/DL (8.8-10.2); CARBON DIOXIDE LEVEL 27 MEQ/L (21-32); CHLORIDE LEVEL 104 MEQ/L (98-107); CREATININE FOR GFR 1.13 MG/DL (0.70-1.30); GLOMERULAR FILTRATION RATE > 60.0 (>49); GLUCOSE, FASTING 161 MG/DL (70-100); MAGNESIUM LEVEL 1.7 MG/DL (1.8-2.4); POTASSIUM SERUM 3.5 MEQ/L (3.5-5.1); SODIUM LEVEL 140 MEQ/L (136-145)
[2017-12-18] MEDS: LACTULOSE 20 GM/30 ML SYRUP UD PO (17:40)
[2017-12-18] MEDS: MAG SULF 1GM/100ML (MAG RUN) 1 GM in APPROPRIATE DILUENT 1 EA IV (17:40)
[2017-12-18] MEDS: D5W/0.45% SODIUM CHLORIDE 1,000 ML IV (17:41)
[2017-12-18] MEDS: METOCLOPRAMIDE INJ 10MG/2ML VIAL (J2765) IV (18:58)
[2017-12-18] MEDS: LORazepam 1 MG TAB PO (20:46)
[2017-12-19] MEDS: LACTULOSE 20 GM/30 ML SYRUP UD PO ×4 (01:10→18:21)
[2017-12-19] MEDS: ZYTIGA PO (05:11)
[2017-12-19 05:33] LABS: BASO % 0.9 % (0.0-1.0); HEMOGLOBIN 11.2 g/dl (13.5-17.5); IMMATURE GRANULOCYTE % 0.5 % (0-3.0); LYMPH # 0.5 10^3/uL (1.5-4.5); MEAN CORPUSCULAR HEMOGLOBIN 28.2 pg (27.0-33.0); MEAN CORPUSCULAR VOLUME 88.2 fl (80.0-96.0); MONO # 0.3 10^3/uL (0.0-0.8); MONO % 6.7 % (0.0-5.0); NEUTROPHILS # 3.5 10^3/uL (1.8-7.7); NEUTROPHILS % 79.9 % (36.0-66.0); PLATELET COUNT, AUTOMATED 198 10^3/uL (150-450); RED BLOOD COUNT 3.97 10^6/uL (4.30-6.10); RED CELL DISTRIBUTION WIDTH 14.4 % (11.5-14.5); WHITE BLOOD COUNT 4.3 10^3/uL (4.0-10.0)
[2017-12-19 06:03] LABS: ALBUMIN 2.5 GM/DL (3.2-5.2); ALBUMIN/GLOBULIN RATIO 0.83 (1.00-1.93); ALKALINE PHOSPHATASE 383 U/L (45-117); ALT/SGPT 20 U/L (12-78); ANION GAP 5 MEQ/L (8-16); AST/SGOT 14 U/L (7-37); BILIRUBIN,TOTAL 0.5 MG/DL (0.2-1.0); BLOOD UREA NITROGEN 9 MG/DL (7-18); CALCIUM LEVEL 10.1 MG/DL (8.8-10.2); CARBON DIOXIDE LEVEL 30 MEQ/L (21-32); CHLORIDE LEVEL 107 MEQ/L (98-107); CREATININE FOR GFR 1.31 MG/DL (0.70-1.30); GLOMERULAR FILTRATION RATE 58.5 (>49); GLUCOSE, FASTING 138 MG/DL (70-100); POTASSIUM SERUM 4.4 MEQ/L (3.5-5.1); SODIUM LEVEL 142 MEQ/L (136-145); TOTAL PROTEIN 5.5 GM/DL (6.4-8.2)
[2017-12-19 08:04] LABS: MAGNESIUM LEVEL 2.1 MG/DL (1.8-2.4)
[2017-12-19] MEDS: SUCRALFATE SUSP 1GM/10ML UD PO ×4 (08:09→20:35)
[2017-12-19] MEDS: ENOXAPARIN 30 MG/0.3 ML SYR (J1650) SC (09:00)
[2017-12-19] MEDS: MIRALAX *UNIT DOSE* 17GM PACKET PO ×2 (09:50→20:40)
[2017-12-19] MEDS: LIDOCAINE 5% (LIDODERM) PATCH TD (09:50)
[2017-12-19] MEDS: PANTOPRAZOLE 40MG INJ (PROTONIX) (C9113) IV (09:50)
[2017-12-19] MEDS: MORPHINE 15 MG SA TAB PO ×2 (09:51→20:36)
[2017-12-19] MEDS: GABAPENTIN 100 MG CAP PO ×3 (09:51→20:35)
[2017-12-19] MEDS: predniSONE 5 MG TAB PO ×2 (09:51→20:35)
[2017-12-19] MEDS: TAMSULOSIN 0.4 MG CAP PO (09:51)
[2017-12-19] MEDS: SODIUM CHLORIDE 0.9% INJ 10 ML SYR IV (09:53)
[2017-12-19] MEDS: D5W/0.45% SODIUM CHLORIDE 1,000 ML IV (11:15)
[2017-12-19] MEDS: DRONABINOL 2.5 MG CAP (MARINOL) PO ×2 (12:27→17:17)
[2017-12-19] MEDS: **NOTE PATIENT COMMENT** MISC XX (20:37)
[2017-12-19] MEDS: LORazepam 1 MG TAB PO (20:39)
[2017-12-20] MEDS: LACTULOSE 20 GM/30 ML SYRUP UD PO ×4 (00:39→16:26)
[2017-12-20] MEDS: D5W/0.45% SODIUM CHLORIDE 1,000 ML IV (01:50)
[2017-12-20] MEDS: ZYTIGA PO (05:33)
[2017-12-20 06:18] LABS: BASO % 0.7 % (0.0-1.0); HEMATOCRIT 34.5 % (42.0-52.0); IMMATURE GRANULOCYTE % 0.4 % (0-3.0); LYMPH # 0.5 10^3/uL (1.5-4.5); LYMPH % 8.8 % (24.0-44.0); MEAN CORPUSCULAR HEMOGLOBIN 28.1 pg (27.0-33.0); MEAN CORPUSCULAR HGB CONC 31.9 g/dl (32.0-36.5); MONO # 0.3 10^3/uL (0.0-0.8); MONO % 6.1 % (0.0-5.0); NEUTROPHILS # 4.7 10^3/uL (1.8-7.7); PLATELET COUNT, AUTOMATED 210 10^3/uL (150-450); RED BLOOD COUNT 3.92 10^6/uL (4.30-6.10); RED CELL DISTRIBUTION WIDTH 14.5 % (11.5-14.5); WHITE BLOOD COUNT 5.6 10^3/uL (4.0-10.0)
[2017-12-20 06:52] LABS: ALBUMIN 2.3 GM/DL (3.2-5.2); ALBUMIN/GLOBULIN RATIO 0.64 (1.00-1.93); ALKALINE PHOSPHATASE 360 U/L (45-117); ALT/SGPT 15 U/L (12-78); ANION GAP 6 MEQ/L (8-16); AST/SGOT 12 U/L (7-37); BILIRUBIN,TOTAL 0.5 MG/DL (0.2-1.0); BLOOD UREA NITROGEN 12 MG/DL (7-18); CARBON DIOXIDE LEVEL 30 MEQ/L (21-32); CHLORIDE LEVEL 104 MEQ/L (98-107); CREATININE FOR GFR 1.54 MG/DL (0.70-1.30); GLOMERULAR FILTRATION RATE 48.5 (>49); GLUCOSE, FASTING 155 MG/DL (70-100); POTASSIUM SERUM 4.1 MEQ/L (3.5-5.1); SODIUM LEVEL 140 MEQ/L (136-145); TOTAL PROTEIN 5.9 GM/DL (6.4-8.2)
[2017-12-20] MEDS: NS 1,000 ML IV (07:28)
[2017-12-20] MEDS: predniSONE 5 MG TAB PO ×2 (08:11→20:16)
[2017-12-20] MEDS: SUCRALFATE SUSP 1GM/10ML UD PO ×4 (08:11→20:16)
[2017-12-20] MEDS: TAMSULOSIN 0.4 MG CAP PO (08:11)
[2017-12-20] MEDS: PANTOPRAZOLE 40MG INJ (PROTONIX) (C9113) IV (08:12)
[2017-12-20] MEDS: GABAPENTIN 100 MG CAP PO ×3 (08:12→20:16)
[2017-12-20] MEDS: MORPHINE 15 MG SA TAB PO ×2 (08:12→20:17)
[2017-12-20] MEDS: SODIUM CHLORIDE 0.9% INJ 10 ML SYR IV ×2 (08:13→20:23)
[2017-12-20] MEDS: ENOXAPARIN 30 MG/0.3 ML SYR (J1650) SC (08:13)
[2017-12-20] MEDS: LIDOCAINE 5% (LIDODERM) PATCH TD (08:14)
[2017-12-20] MEDS: MIRALAX *UNIT DOSE* 17GM PACKET PO ×2 (09:06→20:18)
[2017-12-20] MEDS: DRONABINOL 2.5 MG CAP (MARINOL) PO ×2 (12:10→17:04)
[2017-12-20] MEDS: LORazepam 1 MG TAB PO (20:17)
[2017-12-20] MEDS: **NOTE PATIENT COMMENT** MISC XX (20:19)
[2017-12-21] MEDS: LACTULOSE 20 GM/30 ML SYRUP UD PO ×3 (06:05→12:40)
[2017-12-21] MEDS: oxyCODONE 5MG TAB PO (06:06)
[2017-12-21] MEDS: ZYTIGA PO (06:07)
[2017-12-21] MEDS: SODIUM CHLORIDE 0.9% INJ 10 ML SYR IV ×3 (06:39→14:45)
[2017-12-21 07:05] LABS: BASO % 0.7 % (0.0-1.0); HEMATOCRIT 31.9 % (42.0-52.0); HEMOGLOBIN 10.3 g/dl (13.5-17.5); IMMATURE GRANULOCYTE % 0.4 % (0-3.0); LYMPH # 0.5 10^3/uL (1.5-4.5); LYMPH % 10.5 % (24.0-44.0); MEAN CORPUSCULAR HEMOGLOBIN 28.7 pg (27.0-33.0); MEAN CORPUSCULAR HGB CONC 32.3 g/dl (32.0-36.5); MEAN CORPUSCULAR VOLUME 88.9 fl (80.0-96.0); MONO # 0.3 10^3/uL (0.0-0.8); MONO % 7.4 % (0.0-5.0); NEUTROPHILS # 3.6 10^3/uL (1.8-7.7); PLATELET COUNT, AUTOMATED 189 10^3/uL (150-450); RED BLOOD COUNT 3.59 10^6/uL (4.30-6.10); RED CELL DISTRIBUTION WIDTH 14.4 % (11.5-14.5); WHITE BLOOD COUNT 4.5 10^3/uL (4.0-10.0)
[2017-12-21 07:34] LABS: ALBUMIN 2.3 GM/DL (3.2-5.2); ALBUMIN/GLOBULIN RATIO 0.68 (1.00-1.93); ALKALINE PHOSPHATASE 372 U/L (45-117); ALT/SGPT 14 U/L (12-78); ANION GAP 5 MEQ/L (8-16); AST/SGOT 14 U/L (7-37); BILIRUBIN,TOTAL 0.6 MG/DL (0.2-1.0); BLOOD UREA NITROGEN 14 MG/DL (7-18); CALCIUM LEVEL 9.7 MG/DL (8.8-10.2); CARBON DIOXIDE LEVEL 31 MEQ/L (21-32); CHLORIDE LEVEL 103 MEQ/L (98-107); CREATININE FOR GFR 1.43 MG/DL (0.70-1.30); GLOMERULAR FILTRATION RATE 52.8 (>49); GLUCOSE, FASTING 117 MG/DL (70-100); MAGNESIUM LEVEL 1.9 MG/DL (1.8-2.4); POTASSIUM SERUM 4.2 MEQ/L (3.5-5.1); SODIUM LEVEL 139 MEQ/L (136-145); TOTAL PROTEIN 5.7 GM/DL (6.4-8.2)
[2017-12-21] MEDS: PANTOPRAZOLE 40MG INJ (PROTONIX) (C9113) IV (09:12)
[2017-12-21] MEDS: LIDOCAINE 5% (LIDODERM) PATCH TD (09:12)
[2017-12-21] MEDS: SUCRALFATE SUSP 1GM/10ML UD PO ×2 (09:12→12:40)
[2017-12-21] MEDS: MIRALAX *UNIT DOSE* 17GM PACKET PO (09:12)
[2017-12-21] MEDS: MORPHINE 15 MG SA TAB PO (09:13)
[2017-12-21] MEDS: GABAPENTIN 100 MG CAP PO (09:13)
[2017-12-21] MEDS: predniSONE 5 MG TAB PO (09:13)
[2017-12-21] MEDS: TAMSULOSIN 0.4 MG CAP PO (09:13)
[2017-12-21] MEDS: ENOXAPARIN 30 MG/0.3 ML SYR (J1650) SC (09:14)
[2017-12-21] MEDS: DRONABINOL 2.5 MG CAP (MARINOL) PO (12:40)
== END 2017-12-21 15:08 | disposition home health service (06) | DRG 194 ==
LOC: M MSPAV 12-16 13:17 → M ED 10:40 → M ED INP 15:39 → M MS4PR 22:31
DX: J18.9 Pneumonia, unspecified organism (principal); C79.51 Secondary malignant neoplasm of bone; N17.9 Acute kidney failure, unspecified; K59.03 Drug induced constipation; C61 Malignant neoplasm of prostate; I12.9 Hypertensive chronic kidney disease with stage 1 through stage 4 chronic kidney disease, or unspecified chronic kidney disease; F41.9 Anxiety disorder, unspecified; K21.9 Gastro-esophageal reflux disease without esophagitis; N18.3 Chronic kidney disease, stage 3 (moderate); G89.3 Neoplasm related pain (acute) (chronic); Z87.891 Personal history of nicotine dependence; Z79.899 Other long term (current) drug therapy; Z79.52 Long term (current) use of systemic steroids; Z88.0 Allergy status to penicillin; Z90.49 Acquired absence of other specified parts of digestive tract; T40.2X5A Adverse effect of other opioids, initial encounter